=== PATIENT | male | born 1995 | race Two or more races ===

== ENCOUNTER 2020-06-18 11:18 | Emergency (ER) | payer MEDICAID, OTHER ==
[~2020-06-18] VITALS: Ht 165.1 cm; Wt 72.6 kg
[2020-06-18 11:21] VITALS: BP 107/73
[2020-06-18] MEDS ORDERED: IBUPROFEN 800 MG TAB PO ONE (13:45)
== END 2020-06-18 14:31 | disposition home or self-care (01) ==
LOC: ER 11:18
DX: R07.81 Pleurodynia (principal); X58.XXXA Exposure to other specified factors, initial encounter; Y93.89 Activity, other specified; Y92.89 Other specified places as the place of occurrence of the external cause; Y99.8 Other external cause status
CPT/HCPCS: 71046; 74176

== ENCOUNTER → 2020-11-18 | Emergency (ER) | payer OTHER ==
[2020-11-18 16:36] VITALS: BP 137/64
== END | disposition left against medical advice (07) ==
LOC: ER 16:36
DX: M79.661 Pain in right lower leg (principal); Z53.21 Procedure and treatment not carried out due to patient leaving prior to being seen by health care provider; W55.22XA Struck by cow, initial encounter; Y93.89 Activity, other specified; Y92.89 Other specified places as the place of occurrence of the external cause; Y99.8 Other external cause status
CPT/HCPCS: 73120; 73130; 73590